=== PATIENT | male | born 1970 | race Caucasian/White ===

== ENCOUNTER 2023-10-03 08:00 | Outpatient (CLI) | payer OTHER ==
--- NOTE | 2023-10-03 11:59 | XRAY Report ---
PROCEDURE: Finger(s) RT INDICATIONS: SUBUNGUAL HEMATOMA RIGHT THUMB TECHNIQUE: AP hand, 2 views of the first finger(s) acquired. COMPARISON: None. FINDINGS: Bones: Cortical lucency of the radial side of the first distal tuft. Soft tissues: No suspicious soft tissue calcifications or masses. IMPRESSION: Cortical lucency of the radial side of the first distal tuft, could represent artifact versus minimal ly displaced fracture. Reviewed by: Zenon Gilman MD on 10/03/2023 11:58 AM PDT Approved by: Zenon Gilman MD on 10/03/2023 11:58 AM PDT Station ID: [id number]
== END 2023-10-03 23:59 | disposition home or self-care (01) ==
LOC: DI.S 08:00
PROVIDERS: ATTEND Emergency Medicine
DX: S60.011A Contusion of right thumb without damage to nail, initial encounter (principal)